=== PATIENT | female | born 1940 | race Two or more races ===

== ENCOUNTER 2023-04-12 14:18 | Observation (INO) | payer OTHER ==
[2023-04-12 15:48] LABS: BASO % 0.4 % (0-2.0); HEMATOCRIT 42.9 % (32.4-45.2); LYMPH % 17.3 % (8-40); MCH 28.4 pg (25.7-33.7); MCHC 32.6 g/dl (32.0-36.0); MEAN CELL VOLUME 87.2 fl (80-96); MEAN PLT VOLUME 10.1 fl (7.5-11.1); MONO % 7.5 % (3.8-10.2); NEUT % 73.8 % (42.8-82.8); PLATELET COUNT 155 10^3/uL (134-434); RBC 4.92 M/mm3 (3.60-5.2); RDW 14.3 % (11.6-15.6); WHITE BLOOD COUNT 5.8 K/mm3 (4.0-10.0)
[2023-04-12 16:10] LABS: POTASSIUM 4.2 mmol/L (3.5-5.1)
[2023-04-12 16:11] LABS: CALCIUM 9.2 mg/dL (8.5-10.1)
[2023-04-12 16:12] LABS: ALBUMIN 4.2 g/dl (3.4-5.0); BLOOD UREA NITROGEN 22.2 mg/dL (7-18)
[2023-04-12 16:15] LABS: CREATININE 1.5 mg/dL (0.55-1.3)
[2023-04-12 16:18] LABS: BILIRUBIN,TOTAL 0.9 mg/dL (0.2-1); TOT PROT 7.7 g/dl (6.4-8.2)
[2023-04-12] MEDS ORDERED: hydrALAZINE HCL 20 MG/ML VIAL ONE (17:03)
[2023-04-12] MEDS: hydrALAZINE HCL 20 MG/ML VIAL IVPUSH ONE ×2 (17:20→23:03)
[2023-04-12] MEDS: SODIUM CHLORIDE 0.9% 500 ML INFUS.BAG IV ONE (17:20)
[2023-04-12] MEDS ORDERED: amLODIPine BESYLATE 5 MG TABLET (FP) ONE (18:12)
[2023-04-12] MEDS: amLODIPine BESYLATE 5 MG TABLET (FP) PO SCH (18:18)
[2023-04-12 18:31] LABS: MAGNESIUM 2.2 mg/dL (1.8-2.4)
[2023-04-12 18:35] LABS: PHOSPHOROUS 3.7 mg/dL (2.5-4.9)
[2023-04-12 18:39] LABS: N-TERMINAL BNP 1518.3 pg/ml (5-450)
[2023-04-12] MEDS ORDERED: hydrALAZINE HCL 20 MG/ML VIAL IVPUSH PRN (22:50)
[2023-04-12 23:21] VITALS: BMI 21.4
[2023-04-13] MEDS: ACETAMINOPHEN 1000 MG/100 ML BAG IVPB ONE (06:48)
[2023-04-13 08:10] LABS: BASO % 0.3 % (0-2.0); EOS % 0.3 % (0-4.5); HEMATOCRIT 39.7 % (32.4-45.2); LYMPH % 21.9 % (8-40); MCH 28.4 pg (25.7-33.7); MCHC 32.7 g/dl (32.0-36.0); MEAN CELL VOLUME 86.9 fl (80-96); MEAN PLT VOLUME 10.5 fl (7.5-11.1); MONO % 6.9 % (3.8-10.2); NEUT % 70.6 % (42.8-82.8); PLATELET COUNT 143 10^3/uL (134-434); RBC 4.57 M/mm3 (3.60-5.2); RDW 13.9 % (11.6-15.6); WHITE BLOOD COUNT 6.6 K/mm3 (4.0-10.0)
[2023-04-13 08:18] LABS: POTASSIUM 4.5 mmol/L (3.5-5.1)
[2023-04-13 08:23] LABS: CALCIUM 9.2 mg/dL (8.5-10.1)
[2023-04-13 08:25] LABS: ALBUMIN 3.7 g/dl (3.4-5.0); BLOOD UREA NITROGEN 26.3 mg/dL (7-18)
[2023-04-13 08:28] LABS: CREATININE 1.4 mg/dL (0.55-1.3); TOT PROT 6.7 g/dl (6.4-8.2)
[2023-04-13 08:29] LABS: BILIRUBIN,TOTAL 0.9 mg/dL (0.2-1)
[2023-04-13] MEDS: amLODIPine BESYLATE 10 MG TABLET (FP) PO SCH (09:44)
[2023-04-13] MEDS: ENOXAPARIN NA (PORCINE) 30 MG/0.3 ML DISP.SYRIN SQ SCH (09:46)
[2023-04-13] MEDS: ATORVASTATIN CA 10 MG TABLET (FP) PO ONE (11:37)
[2023-04-13] MEDS ORDERED: hydrALAZINE HCL 20 MG/ML VIAL IVPUSH PRN (13:59)
[2023-04-13] MEDS: METOPROLOL TARTRATE 25 MG TABLET (FP) PO SCH (21:55)
[2023-04-13] MEDS: DONEPEZIL HCL 5 MG TABLET (FP) PO SCH (21:58)
[2023-04-13] MEDS ORDERED: DONEPEZIL HCL 5 MG TABLET (FP) PO SCH (22:00)
[2023-04-14 06:48] VITALS: RESP 18
[2023-04-14 09:24] LABS: BASO % 0.5 % (0-2.0); HEMATOCRIT 43.6 % (32.4-45.2); HEMOGLOBIN 14.3 GM/dL (10.7-15.3); LYMPH % 41.7 % (8-40); MCH 28.7 pg (25.7-33.7); MCHC 32.9 g/dl (32.0-36.0); MEAN CELL VOLUME 87.2 fl (80-96); MEAN PLT VOLUME 10.3 fl (7.5-11.1); MONO % 9.1 % (3.8-10.2); NEUT % 47.7 % (42.8-82.8); PLATELET COUNT 173 10^3/uL (134-434); RDW 14.5 % (11.6-15.6); WHITE BLOOD COUNT 6.7 K/mm3 (4.0-10.0)
[2023-04-14 09:39] LABS: POTASSIUM 4.2 mmol/L (3.5-5.1)
[2023-04-14 09:40] LABS: CALCIUM 9.9 mg/dL (8.5-10.1)
[2023-04-14 09:43] LABS: CREATININE 1.6 mg/dL (0.55-1.3)
[2023-04-14] MEDS: amLODIPine BESYLATE 10 MG TABLET (FP) PO SCH (10:44)
[2023-04-14] MEDS: ENOXAPARIN NA (PORCINE) 30 MG/0.3 ML DISP.SYRIN SQ SCH (10:48)
[2023-04-14 13:43] VITALS: BP 166/82; PULSE 72; TEMP 98.7
== END 2023-04-14 14:09 | disposition home or self-care (01) ==
LOC: JER 14:18 → JERBED 16:40 → J4W 22:29 → J5S 04-13 13:30
PROVIDERS: ADMIT Internal Medicine; ATTEND Nurse Practitioner Acute Care
PROC: 3E033NZ Introduction of Analgesics, Hypnotics, Sedatives into Peripheral Vein, Percutaneous Approach (ICD-10-PCS; principal; 2023-04-12)
PROC: 3E033GC Introduction of Other Therapeutic Substance into Peripheral Vein, Percutaneous Approach (ICD-10-PCS; 2023-04-12)
DX: N17.9 Acute kidney failure, unspecified (principal); I16.0 Hypertensive urgency; R01.1 Cardiac murmur, unspecified; R00.1 Bradycardia, unspecified; F03.90 Unspecified dementia, unspecified severity, without behavioral disturbance, psychotic disturbance, mood disturbance, and anxiety
CPT/HCPCS: 36415; 76775-TC; 80048; 80053; 80061; 83036; 83735; 83880; 84100; 84484; 85025; 93306-TC; 96374; 96375; 96376; 99285-25; G0378; J0131